=== PATIENT | male | born 1950 | race Caucasian/White ===

== ENCOUNTER 2023-05-09 06:21 | Day surgery (SDC) | payer BC, OTHER ==
[2023-04-21 14:17] LABS: Absolute Eosinophils 0.3 K/uL (0-0.5); Absolute Lymphocytes (CBC) 1.4 K/uL (0.7-4.9); Absolute Monocytes 0.6 K/uL (0.1-1.3); Absolute Neutrophil 6.6 K/uL (1.8-8.0); Basophils % 0.5 % (0-1.3); Eosinophils % 3.2 % (0-4.4); Hematocrit 38.2 % (39.6-49.0); Hemoglobin 12.9 g/dL (13.6-17.9); Lymphocytes % 15.9 % (15.3-44.8); MCH 31.9 pg (27.0-35.0); MCHC 33.9 g/dL (32.0-36.0); MCV 94.1 fL (80-100); MPV 7.8 fL (7.6-11.3); Monocytes % 7.1 % (3.3-12.3); Neutrophils % 73.3 % (41.7-73.7); Nucleated Red Blood Cells % 0.1 % (0-0); Platelets 204 thou/uL (152-406); RBC Red Blood Cell Count 4.06 M/uL (4.33-5.43); Red Cell Distribution Width 12.5 % (12.1-15.2)
[2023-04-21 14:20] LABS: PT Prothrombin Time 10.9 SECONDS (9.5-12.5); PTT, Activated Partial Thromb 31.6 SECONDS (24.3-36.9); Protime INR 0.99
[2023-04-21 14:29] LABS: Anion Gap 8.3 mEq/L (5.0-15.0); Potassium 4.3 mEq/L (3.5-5.1)
--- NOTE | 2023-04-21 14:36 | RAD REPORT ---
EXAM DESCRIPTION: Westley Snider (2 Views)04/21/2023 2:23 pm CLINICAL HISTORY: Preop for urologic surgery COMPARISON: None FINDINGS: The lungs appear clear of acute infiltrate. The heart is normal size IMPRESSION: No acute abnormalities displayed
[2023-05-09] MEDS: NA CHLORIDE 0.9% 1,000 ML ONE (06:55)
[2023-05-09] MEDS ORDERED: ONDANSETRON 4 MG/2 ML VIAL ONE (07:20)
[2023-05-09] MEDS ORDERED: propofoL 200 MG/20 ML VIAL IV ONE (07:20)
[2023-05-09] MEDS ORDERED: FENTANYL CITR 100 MCG/2 ML ONE (07:20)
[2023-05-09] MEDS: INSULIN REGULAR (HUMAN) 100 UNIT/ML ONE (07:25)
[2023-05-09] MEDS: CEFAZOLIN SODIUM 2 GM/VIAL ONE (07:36)
[2023-05-09] MEDS ORDERED: EPHEDRINE SULF 50 MG/ML VIAL ONE (07:48)
[2023-05-09] MEDS ORDERED: CODEINE 30MG/APAP 300MG TAB ONE (09:01)
[2023-05-09] MEDS ORDERED: PHENAZOPYRIDINE 100MG TAB PO ONE (09:02)
[2023-05-09] MEDS: CODEINE 30MG/APAP 300MG TAB PO PRN (09:04)
[2023-05-09] MEDS: PHENAZOPYRIDINE 100MG TAB PO ONE (09:04)
--- NOTE | 2023-05-09 09:05 | OP ---
Surgeon: BERNARDINO ALDRIDGE Preoperative Diagnosis: Benign prostatic hypertrophy with lower urinary tract obstruction and sympto ms. Postoperative Diagnosis: Benign prostatic hypertrophy with lower urinary tract obstruction and sympt oms. Principal Procedure: Prostatic urethral lift/UroLift with 5 implants placed. Indication For Procedure: Mr. Leon presented to the [facility] with persistent bothersome ur inary symptoms despite medical therapy. He underwent evaluation, which revealed some anatomic obstru ction due to BPH with trabeculation of his detrusor. As a consequence and ultimately elected to proc eed with procedural therapy to manage his anatomic obstruction due to BPH. Procedure In Detail: The patient was consented in the preoperative holding area before being transfe rred to the operative suite where general anesthesia was induced. He was given Ancef 2 g IV antimicr obial prophylaxis, and pneumo boots were provided for DVT prophylaxis. He was placed in the lithotom y position, padded and secured to the table appropriately. His genitalia were prepped with Hibiclens and he was draped in standard fashion. The case was begun using the 20-[place]aur[place] UroLift sheath and vi sual obturator to traverse the urethra and into the bladder with ease. The bladder was briefly surve yed, and no obvious papillary mucosal lesions, foreign bodies, or stones were noted. The previously observed moderate trabeculations were again observed. The anatomic obstruction was again noted large ly emanating from the patient's right lateral lobe with some lesser left lateral lobar obstruction. There was no significant bladder neck obstruction due to an anterior median bar or intravesically pro jecting median lobe. As a result, I switched the visual obturator for the first implant delivery dev ice and an implant, and I targeted the patient's right lateral lobe approximately 1.5-2 cm distal to the bladder neck opening at around the 10 to 11 o'clock position. Touching the tissue at about a 15 degree lateralization of the scope, I pulled the trigger, deploying the needle through the substance of the prostate. I then lateralized the scope an additional 15 degrees compressing the tissue and en suring the tip of the needle outside of the capsular surface. I then pulled the trigger a second annel e deploying the capsular tap and partially retracting the needle. A third pull of the trigger did co mpletely retract the needle and tensioned the suture. I then advanced the scope back toward the midl ine and toward the bladder neck about 2-3 cm until the white line of the monofilament was centered in the delivery bay. I then pulled the trigger a fourth time deploying the urethral end piece, which d id situate nicely and compressed and lateralized the right lateral lobar tissue at the bladder neck w ith a beautiful rim of tissue existing between the urethral end piece and the entry into the bladder. I then advanced the scope back into the bladder and switched the implant delivery device for a new implant, which I then targeted this time at the patient's right lateral lobar tissue involving the ap ical region. Looking at the verumontanum, the apical intrusion did situate a few millimeters more pr oximal; so I targeted that implant approximately 1-2 mm more proximal than the verumontanum at again the 10 to 11 o'clock position. A similar sequence of events was undertaken before ultimately deployi ng a second implant at the apical zone of the prostate on the right nicely lateralizing the tissue in that location. I then utilized a visual obturator to survey the channel created before determining to place an implant on the patient's left side laterally between the mid zone of the prostate and the bladder neck. This was completed and beautifully did lateralize the tissue in that location. I the n surveyed the channel created again and there was some residual intruding tissue emanating from the patient's right side between the apical and the bladder neck implants, and a bit of residual intrusio n from the left lateral lobe at the apex. So, a fourth implant was placed in the midzone tissue on t he right at around the 9 o'clock position, and a fifth implant was placed on the left at the level of the verumontanum, which did create a beautiful continuous anterior channel as surveyed using the vis ual obturator. With the bladder completely decompressed, a channel was visible anteriorly from the v erumontanum into the bladder neck with no evidence of obstruction along the way and with the bladder completely decompressed and no fluid influx, there was only a trickle of blood. As a result, I refil led his bladder with saline and removed the scope. I then passed an 18-[place]aur[place] catheter into his blad kyra with ease and placed 15 cc of sterile water in the balloon. The catheter was connected to a leg bag and he was taken out of the lithotomy position. He was then awakened from general anesthesia, tr ansferred to a stretcher, and then transferred to the recovery room in good condition. Complications: None. Discharge Disposition: He will be standard UroLift follow up in 1 month. LEANNE/SILVIA Voice ID: [id number] Report ID: [id number]
[2023-05-09 09:57] VITALS: BP 131/72; TEMP 96.5; O2SAT 99
== END 2023-05-09 09:42 | disposition home or self-care (01) ==
LOC: OR 06:21
PROVIDERS: ATTEND Urology
PROC: 0T7D8DZ Dilation of Urethra with Intraluminal Device, Via Natural or Artificial Opening Endoscopic (ICD-10-PCS; principal; 2023-05-09 07:30)
DX: N40.1 Benign prostatic hyperplasia with lower urinary tract symptoms (principal); N13.8 Other obstructive and reflux uropathy; I10 Essential (primary) hypertension; I25.10 Atherosclerotic heart disease of native coronary artery without angina pectoris; E11.9 Type 2 diabetes mellitus without complications; K21.9 Gastro-esophageal reflux disease without esophagitis; G47.33 Obstructive sleep apnea (adult) (pediatric)
CPT/HCPCS: 85025; 87086; 80048; 36415; 85610; 82947 ×3; 85730; 71046; 52441; 52442 ×4; J1815; J2704; J3010; J2405; J7030; 87088